=== PATIENT | female | born 1950 | race Caucasian/White ===

== ENCOUNTER 2018-04-27 10:26 | Day surgery (SDC) | payer MEDICARE, OTHER ==
[~2018-04-27] VITALS: Ht 162.6 cm; Wt 58.1 kg
[~2018-04-27 10:26] MED LIST: ASPIRIN325 MG PO; DAILY VALUE1 EACH PO; GLUCOPHAGE1000 MG PO; LIPITOR20 MG PO; NAPROXEN SODIU550 M1 PO; OMEPRAZOLE20 MG PO; PREMARIN1.25 MG PO; SYNTHROID75 MCG PO
--- NOTE | 2018-04-27 14:28 | NUR ---
04/27/18 1428 Maisha Greco 1418 PATIENT ARRIVES TO PACU, SLEEPING, RESPONDS APPROPRIATELY TO VERBAL STIMULI. RESP EVEN AND UNLABORED, NC AT 2 LITERS ON ARRIVAL, TURNED OFF. ROOM AIR SATS 96%. 1428 SPOUSE AT BEDSIDE. PATIENT SITTING UP TALKING WITH SPOUSE. DR FISHMAN AT BEDSIDE TO TALK WITH PATIENT AND SPOUSE. PATIENT PASSING GAS.
--- NOTE | 2018-04-28 10:03 | OR ---
[facility] [address], [place] [address] Signed DATE OF OPERATION: 04/27/2018 SURGEON: Dionicio Fishman MD PREOPERATIVE DIAGNOSES: 1. Iron deficiency anemia. 2. History of dysplastic polyp of colon, in 2003, normal colonoscopy in 2012. POSTOPERATIVE DIAGNOSIS: Sigmoid diverticulosis. No evidence of polyps, colitis, or cancer. PROCEDURE: Total colonoscopy to cecum. ANESTHESIA: Intravenous sedation, fentanyl 100 mcg, Versed 5 mg. INDICATION: This 68-year-old white woman is a patient Dr. Alcazar and has been identified as having iron deficiency anemia with hematocrit of about 32. She underwent colonoscopy by me in 2003, which time she had a dysplastic polyp. Followup colonoscopy in 2012 was negative. She has no family history of colon cancer. She is having no upper abdominal pain. No blood per rectum, diarrhea, or constipation. She is admitted to undergo colonoscopy to assess for possible neoplasm to account for anemia. She understands the risks of bleeding, infection, and perforation. FINDINGS: The prep was good. Complete colonoscopy was undertaken of the cecum without question. There were several small diverticula of the sigmoid and left colon, but no signs of polyps, diverticular colitis, or cancer. DESCRIPTION OF PROCEDURE: The patient was brought to the endoscopy suite and placed in lateral decubitus position, given intravenous sedation to the point of slurred speech and nystagmus. Digital rectal examination was normal. The Olympus video colonoscope was passed in the rectum and manipulated throughout the colon. Passage to the sigmoid was slightly prolonged on the basis of angulation deformity, possibly related to diverticulosis. Diverticula were small. The scope was ultimately advanced beyond this to the cecum itself. The ileocecal valve and Electronically Signed By: DIONICIO FISHMAN MD 04/28/18 1003 PATIENT NAME: DEE OAKES OPERATIVE REPORT DATE OF : 46 REPORT #: [id number] PHYSICIAN: DIONICIO FISHMAN MD PCP: GENIE ALCAZAR MD REPORT IS CONFIDENTIAL AND NOT TO BE RELEASED WITHOUT AUTHORIZATION [facility] [address], [place] [address] Signed appendiceal orifice were well identified and found to be normal. The scope was withdrawn from that point and examination throughout showed no sign of abnormality other than the diverticula of the sigmoid. Retroflexed view of the rectum was normal. Scope was removed. The patient was taken to the recovery room in good condition. CONCLUDING DIAGNOSIS: Minimal diverticular changes. No sign of cancer or polyps. PLAN: We will repeat CBC. If she is still anemic, consideration might be made for upper endoscopy or other intervention to assess for cause of anemia. MD EVE Grande/FRIDA /[id number] cc: Genie Alcazar MD Copies: GENIE ALCAZAR MD ~ Electronically Signed By: DIONICIO FISHMAN MD 04/28/18 1003 PATIENT NAME: DEE OAKES OPERATIVE REPORT DATE OF : 46 REPORT #: [id number] PHYSICIAN: DIONICIO FISHMAN MD PCP: GENIE ALCAZAR MD REPORT IS CONFIDENTIAL AND NOT TO BE RELEASED WITHOUT AUTHORIZATION
== END 2018-04-27 14:55 | disposition home or self-care (01) ==
LOC: DS 10:26 → OPS 10:26 → DS 12:00 → OPS 14:55
PROVIDERS: Surgery
PROC: 0DJD8ZZ Inspection of Lower Intestinal Tract, Via Natural or Artificial Opening Endoscopic (ICD-10-PCS; principal; 2018-04-27 12:00)
DX: K57.30 Diverticulosis of large intestine without perforation or abscess without bleeding (principal); D50.9 Iron deficiency anemia, unspecified; E11.9 Type 2 diabetes mellitus without complications; N20.0 Calculus of kidney; Z98.890 Other specified postprocedural states; Z86.010 Personal history of colon polyps
CPT/HCPCS: 85025; 99153; G0500; J2250; J3010; J7120

== ENCOUNTER 2025-02-01 11:57 | Emergency (ER) | payer MEDICARE, OTHER ==
[~2025-02-01] VITALS: Ht 162.6 cm; Wt 52.5 kg
[~2025-02-01 11:57] MED LIST changes: +CO Q-10 100 MG1 EACH PO
[2025-02-01] MEDS ORDERED: LEVOTHYROXINE75 MCG PO (12:17)
[2025-02-01 12:44] LABS: ALBUMIN/GLOBULIN RATIO 0.77 (1.1-2.4); ALCOHOL, MEDICAL <3 ng/dL (<3); ALKALINE PHOSPHATASE 128 U/L (46-116); ALT (SGPT) 28 U/L (14-59); ANION GAP 12.8 (7-21); AST (SGOT) 30 U/L (15-37); BILIRUBIN, TOTAL 0.6 mg/dL (0.2-1.0); BUN/CREATININE RATIO 19.75 (6.0-28.6); CALCIUM 9.7 mg/dL (8.5-10.1); CARBON DIOXIDE 24 mmol/L (21-32); CHLORIDE 100 mmol/L (98-107); CREATININE, SERUM 0.81 mg/dL (0.55-1.02); GLOMERULAR FILTRATION RATE,EST 75 mL/min (>60); POTASSIUM 3.8 mmol/L (3.5-5.1); PROTEIN, TOTAL 6.9 g/dL (6.4-8.2); UREA NITROGEN 16 mg/dL (7-18)
[2025-02-01 12:55] LABS: BASOPHILS 0.1 % (0-2); HEMATOCRIT 32.3 % (35.0-50.0); HEMOGLOBIN 11.2 g/dL (12.0-18.0); LYMPHOCYTES 7.1 % (24-44); MCH 29.3 (27-36); MCHC 34.6 g/dl (30-36); MCV 84.8 fl (81-99); MONOCYTES 4.6 % (0-12); NEUTROPHILS 88.2 % (39-80); PLATELET COUNT 107 K/uL (140-440); RBC 3.81 M/ul (4.3-5.7); RDW 13.8 (10.5-15.0)
[2025-02-01] MEDS ORDERED: SODIUM CHLORIDE 0.9% 1,000 ML IV PRN (13:30)
[2025-02-01 14:15] LABS: BILIRUBIN, URINE NEGATIVE (negative); BLOOD/HGB, URINE NEGATIVE (Negative); KETONE, URINE >=80 (Negative); LEUK ESTERASE, URINE NEGATIVE (negative); NITRITE, URINE NEGATIVE (negative)
[2025-02-01] MEDS ORDERED: ACETAMINOPHEN 325 MG TAB PO ONE (14:30)
[2025-02-01 14:58] LABS: AMPHETAMINES, URINE NEGATIVE (NEGATIVE); BARBITURATES, URINE NEGATIVE (NEGATIVE); BENZODIAZEPINE, URINE NEGATIVE (NEGATIVE); BUPRENORPHINE, URINE NEGATIVE (NEGATIVE); CANNABINOID, URINE NEGATIVE (NEGATIVE); COCAINE, URINE NEGATIVE (NEGATIVE); ECSTASY, URINE NEGATIVE (NEGATIVE); FENTANYL, URINE NEGATIVE (NEGATIVE); METHADONE, URINE NEGATIVE (NEGATIVE); OPIATES, URINE NEGATIVE (NEGATIVE); OXYCODONE, URINE NEGATIVE (NEGATIVE); PHENCYCLIDINE, URINE NEGATIVE (NEGATIVE)
[2025-02-01] MEDS ORDERED: OLANZAPINE ODT5 MG PO (16:49)
[2025-02-01] MEDS ORDERED: AMOX TR-K CLV1 EAC1 PO (16:49)
[2025-02-01 17:02] VITALS: BP 144/86
--- NOTE | 2025-02-02 07:34 | EKG ---
[facility] [address] [facility] [place], [place] [address] Signed Normal sinus rhythm Normal ECG No previous ECGs available Confirmed by Sadaf Freeman MD ([id number]) on 02/02/2025 7:34:33 AM Electronically Signed By: SADAF FREEMAN MD 02/02/25 0734 PATIENT NAME: DEE OAKES Electrocardiogram DATE OF : 46 PHYSICIAN: SADAF FREEMAN MD REPORT #: [id number] REPORT IS CONFIDENTIAL AND NOT TO BE RELEASED WITHOUT AUTHORIZATION
== END 2025-02-01 17:02 | disposition home or self-care (01) ==
LOC: ED 11:57
PROVIDERS: Emergency Medicine
DX: R41.89 Other symptoms and signs involving cognitive functions and awareness (principal); E11.9 Type 2 diabetes mellitus without complications; E03.9 Hypothyroidism, unspecified; Z79.899 Other long term (current) drug therapy
CPT/HCPCS: 36415; 51701; 70450; 71045; 72125; 72170; 80053; 80307; 81003; 84484; 85025; 93005; 93010; 99285-25; A9270; G0480; J7030

== ENCOUNTER 2025-02-03 11:07 | Inpatient (IN) | payer MEDICARE, OTHER ==
[~2025-02-03] VITALS: Ht 162.6 cm; Wt 49.0 kg
[~2025-02-03 11:07] MED LIST changes: +AMOX TR-K CLV1 EAC1 PO; +LEVOTHYROXINE75 MCG PO; +OLANZAPINE ODT5 MG PO; +SEVOFLURANE 250 ML BTL INH ONE
--- OUTSIDE RECORDS SUMMARY | 2025-02-03 11:08 | XMS ---
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 Cat VISIT COUNT (12 MO.) 2 [facility] TOTAL 2 NOTE: Visits indicate total known visits. ED/UCC VISIT TRACKING (12 MO.) 02/03/2025 11:07 [facility] TYPE: Emergency COMPLAINT: - ALTERED LOC 02/01/2025 11:58 [facility] [place] TYPE: Emergency COMPLAINT: - ALTERED MENTAL STATUS INPATIENT VISIT TRACKING (12 MO.) No inpatient visits to display in this time frame [email or web address]
[2025-02-03 11:26] LABS: BASOPHILS 0.2 % (0-2); HEMATOCRIT 36.6 % (35.0-50.0); HEMOGLOBIN 12.5 g/dL (12.0-18.0); LYMPHOCYTES 9.2 % (24-44); MCH 28.7 (27-36); MCHC 34.2 g/dl (30-36); MCV 84.1 fl (81-99); MONOCYTES 7.8 % (0-12); NEUTROPHILS 82.8 % (39-80); PLATELET COUNT 164 K/uL (140-440); RBC 4.35 M/ul (4.3-5.7); RDW 13.6 (10.5-15.0)
[2025-02-03 11:45] LABS: ALBUMIN 2.9 g/dL (3.4-5.0); ALBUMIN/GLOBULIN RATIO 0.66 (1.1-2.4); ANION GAP 13.2 (7-21); BILIRUBIN, TOTAL 0.8 mg/dL (0.2-1.0); BUN/CREATININE RATIO 19.1 (6.0-28.6); CREATININE, SERUM 0.89 mg/dL (0.55-1.02); POTASSIUM 3.2 mmol/L (3.5-5.1); PROTEIN, TOTAL 7.3 g/dL (6.4-8.2)
[2025-02-03] MEDS ORDERED: SODIUM CHLORIDE 0.9% 500 ML IV PRN (12:00)
[2025-02-03 12:11] LABS: BILIRUBIN, URINE NEGATIVE (negative); BLOOD/HGB, URINE NEGATIVE (Negative); KETONE, URINE SMALL (Negative); LEUK ESTERASE, URINE NEGATIVE (negative); NITRITE, URINE NEGATIVE (negative); PH, URINE 6.5 (5-7)
[2025-02-03 12:21] LABS: BACTERIA, URINE NONE SEEN /hpf (negative); CASTS, URINE NONE SEEN \\lpf; COLLECTION TYPE, URINE CLEAN CATCH; CRYSTALS, URINE CALCIUM OXALATE 2+ (0-1+); EPITHELIAL CELLS, URINE SQUAMOUS 1+ /lpf (0-1+); RED BLOOD CELLS, URINE 0-1 /hpf (0-5); REFLEX CULTURE, URINE No (No); WHITE BLOOD CELLS, URINE 0-1 /HPF (0-5)
[2025-02-03] MEDS ORDERED: PANTOPRAZOLE SODIUM 40 MG/10 ML VIAL IV ONE (13:15)
[2025-02-03] MEDS ORDERED: LORazepam 2 MG/ML VIAL IV ONE (14:45)
[2025-02-03] MEDS ORDERED: CEFTRIAXONE SODIUM 1 GM in SODIUM CHLORIDE 0.9% 100 ML IV SCH (17:00)
[2025-02-03 17:45] VITALS: BP 181/80
[2025-02-03] MEDS ORDERED: ondansetron HCL 4 MG/2 ML VIAL IV PRN (17:45)
[2025-02-03] MEDS ORDERED: ACETAMINOPHEN 325 MG TAB PO PRN (17:45)
[2025-02-03 17:59] LABS: AMPHETAMINES, URINE NEGATIVE (NEGATIVE); BARBITURATES, URINE NEGATIVE (NEGATIVE); BENZODIAZEPINE, URINE NEGATIVE (NEGATIVE); BUPRENORPHINE, URINE NEGATIVE (NEGATIVE); CANNABINOID, URINE NEGATIVE (NEGATIVE); COCAINE, URINE NEGATIVE (NEGATIVE); ECSTASY, URINE NEGATIVE (NEGATIVE); FENTANYL, URINE NEGATIVE (NEGATIVE); METHADONE, URINE NEGATIVE (NEGATIVE); OPIATES, URINE NEGATIVE (NEGATIVE); OXYCODONE, URINE NEGATIVE (NEGATIVE); PHENCYCLIDINE, URINE NEGATIVE (NEGATIVE)
[2025-02-03 19:54] VITALS: BP 168/67; BP 468/67
[2025-02-03 19:57] VITALS: BP 168/67
[2025-02-03] MEDS ORDERED: SODIUM CHLORIDE 0.9% 1,000 ML IV SCH (20:15)
[2025-02-04] VITALS (10 sets, daily range): BP systolic 143–171; BP diastolic 67–86
[2025-02-04 05:40] LABS: BASOPHILS 0.2 % (0-2); HEMATOCRIT 33.6 % (35.0-50.0); HEMOGLOBIN 11.7 g/dL (12.0-18.0); LYMPHOCYTES 14.5 % (24-44); MCH 28.9 (27-36); MCHC 34.7 g/dl (30-36); MCV 83.3 fl (81-99); MONOCYTES 9.2 % (0-12); NEUTROPHILS 76.1 % (39-80); PLATELET COUNT 149 K/uL (140-440); RBC 4.04 M/ul (4.3-5.7); RDW 13.9 (10.5-15.0)
[2025-02-04 05:47] LABS: ANION GAP 7.7 (7-21); BUN/CREATININE RATIO 20.27 (6.0-28.6); CALCIUM 9.6 mg/dL (8.5-10.1); CREATININE, SERUM 0.74 mg/dL (0.55-1.02); MAGNESIUM 1.8 mg/dL (1.8-2.4); POTASSIUM 2.7 mmol/L (3.5-5.1)
[2025-02-04] MEDS ORDERED: PIPERACILLIN/TAZOBACTAM 4.5 GM in SODIUM CHLORIDE 0.9% 100 ML IV SCH (07:45)
[2025-02-04] MEDS ORDERED: POTASSIUM CHLORIDE 40 MEQ in DEXTROSE 5% 250 ML IV ONE ×3 (07:45→18:30)
[2025-02-04 07:50] LABS: ALBUMIN 2.6 g/dL (3.4-5.0); ALBUMIN/GLOBULIN RATIO 0.67 (1.1-2.4); BILIRUBIN, DIRECT 0.2 mg/dL (0.0-0.2); BILIRUBIN, INDIRECT 0.4 (0.1-0.7); BILIRUBIN, TOTAL 0.6 mg/dL (0.2-1.0); PROTEIN, TOTAL 6.5 g/dL (6.4-8.2)
[2025-02-04] MEDS ORDERED: ENOXAPARIN SODIUM 40 MG/0.4 ML SYR SUB-Q SCH (09:00)
[2025-02-04] MEDS ORDERED: PHARMACY RENAL DOSE ADJUSTMENT 1 DOSE MISC PO SCH (12:00)
[2025-02-04 12:21] LABS: INR 1.27 (0.80-1.30); PROTIME 15.4 Sec (11.2-14.2)
[2025-02-04] MEDS ORDERED: IBLOOD GLUCOSE TEST STRIP 1 EA TEST VI SCH (14:00)
[2025-02-04] MEDS ORDERED: metroNIDAZOLE/SODIUM CHLORIDE 500 MG/100 ML PIGGYBACK IV SCH (14:00)
[2025-02-04] MEDS ORDERED: ACETAMINOPHEN 1,000 MG/100 ML VIAL IV PRN (14:30)
[2025-02-04] MEDS ORDERED: INSULIN LISPRO 100 UNIT/ML ML SUB-Q ONE ×2 (14:45→21:30)
[2025-02-04 18:12] LABS: ANION GAP 6.6 (7-21); BUN/CREATININE RATIO 17.64 (6.0-28.6); CALCIUM 9.5 mg/dL (8.5-10.1); CREATININE, SERUM 0.85 mg/dL (0.55-1.02); POTASSIUM 3.6 mmol/L (3.5-5.1)
[2025-02-05] VITALS (11 sets, daily range): BP systolic 149–192; BP diastolic 64–87
[2025-02-05 06:14] LABS: BASOPHILS 0.2 % (0.1-1.2); EOSINOPHILS 0.2 % (0.7-5.8); HEMATOCRIT 36.3 % (34.1-44.9); HEMOGLOBIN 12.1 g/dL (11.2-15.7); LYMPHOCYTES 12.1 % (19.3-51.7); MCH 28.5 PG (25.6-32.2); MCHC 33.3 g/dL (32.2-35.5); MCV 85.6 fL (79.4-94.8); MONOCYTES 5.8 % (4.7-12.5); NEUTROPHILS 80.9 % (34.0-71.1); PLATELET COUNT 145 K/uL (182-369); RBC 4.24 M/uL (3.93-5.22)
[2025-02-05 06:24] LABS: ANION GAP 11.6 (7-21); BUN/CREATININE RATIO 19.44 (6.0-28.6); CALCIUM 9.7 mg/dL (8.5-10.1); CREATININE, SERUM 0.72 mg/dL (0.55-1.02); INR 1.27 (0.80-1.30); MAGNESIUM 1.8 mg/dL (1.8-2.4); POTASSIUM 3.6 mmol/L (3.5-5.1); PROTIME 15.1 Sec (11.2-14.2)
--- NOTE | 2025-02-05 07:52 | EKG ---
[facility] [address] [facility] [place] [address] Signed Normal sinus rhythm Nonspecific ST abnormality Abnormal ECG When compared with ECG of 01-FEB-2025 12:48, No significant change was found Confirmed by Sadaf Freeman MD ([id number]) on 02/05/2025 7:51:52 AM Electronically Signed By: SADAF FREEMAN MD 02/05/25 0752 PATIENT NAME: DEE OAKES Electrocardiogram DATE OF : 46 PHYSICIAN: SADAF FREEMAN MD REPORT #: [id number] REPORT IS CONFIDENTIAL AND NOT TO BE RELEASED WITHOUT AUTHORIZATION
[2025-02-05 08:39] LABS: TRIIODOTHYRONINE,FREE FREE T3 1.2 pg/mL (2.5-4.3)
[2025-02-05] MEDS ORDERED: MORPHINE SULFATE 4 MG/ML VIAL IV PRN (10:00)
[2025-02-05 12:35] LABS: THYROXINE FREE 1.2 ng/dL (0.9-1.7)
[2025-02-05] MEDS ORDERED: LIDOCAINE HCL 2% 5 ML SDV ONE (12:40)
[2025-02-05] MEDS ORDERED: SUGAMMADEX SODIUM 200 MG/2 ML ML ONE (12:40)
[2025-02-05] MEDS ORDERED: ROCURONIUM BROMIDE 50 MG/5 ML SYR ONE (12:40)
[2025-02-05] MEDS ORDERED: fentaNYL citrate 100 MCG/2 ML VIAL ONE (12:40)
[2025-02-05] MEDS ORDERED: LIDOCAINE HCL 2% 20 MG/ML VIAL INJ ONE (12:40)
[2025-02-05] MEDS ORDERED: ondansetron HCL 4 MG/2 ML VIAL ONE (12:40)
[2025-02-05] MEDS ORDERED: SUCCINYLCHOLINE IN 0.9% NACL 200 MG/10 ML SYRINGE ONE (12:40)
[2025-02-05] MEDS ORDERED: ACETAMINOPHEN 1,000 MG/100 ML VIAL ONE (12:40)
[2025-02-05] MEDS ORDERED: propofoL 200 MG/20 ML VIAL ONE (12:40)
[2025-02-05] MEDS ORDERED: LACTATED RINGER'S 1,000 ML IV ONE (14:38)
[2025-02-05] MEDS ORDERED: fentaNYL citrate 50 MCG/ML SDV IV PRN (15:00)
[2025-02-05] MEDS ORDERED: NALOXONE HCL 0.4 MG SYR IV PRN (15:00)
[2025-02-05] MEDS ORDERED: ondansetron HCL 4 MG/2 ML VIAL IV PRN (15:00)
[2025-02-05] MEDS ORDERED: IBLOOD GLUCOSE TEST STRIP 1 EA TEST VI PRN (15:00)
[2025-02-05] MEDS ORDERED: ARTIFICIAL TEARS 15 ML BTL OS SCH (15:00)
[2025-02-05] MEDS ORDERED: OXYCODONE HCL 5 MG TAB PO PRN (16:00)
[2025-02-05] MEDS ORDERED: HYDROmorphone HCL 1 MG/ML SYR IV PRN (16:00)
[2025-02-06] VITALS (11 sets, daily range): BP systolic 136–177; BP diastolic 69–82
[2025-02-06 05:48] LABS: BASOPHILS 0.1 % (0.1-1.2); EOSINOPHILS 0 % (0.7-5.8); HEMATOCRIT 37.5 % (34.1-44.9); HEMOGLOBIN 12.5 g/dL (11.2-15.7); LYMPHOCYTES 14.7 % (19.3-51.7); MCH 28.4 PG (25.6-32.2); MCHC 33.3 g/dL (32.2-35.5); MCV 85.2 fL (79.4-94.8); MONOCYTES 5.1 % (4.7-12.5); NEUTROPHILS 79.5 % (34.0-71.1); PLATELET COUNT 148 K/uL (182-369)
[2025-02-06 05:58] LABS: ANION GAP 10.5 (7-21); BUN/CREATININE RATIO 29.23 (6.0-28.6); CALCIUM 9.7 mg/dL (8.5-10.1); CREATININE, SERUM 0.65 mg/dL (0.55-1.02); MAGNESIUM 1.7 mg/dL (1.8-2.4); POTASSIUM 3.5 mmol/L (3.5-5.1)
--- NOTE | 2025-02-06 07:45 | EKG ---
[facility] [address] [facility] [place] [address] Signed Normal sinus rhythm Possible Left atrial enlargement Nonspecific ST abnormality Abnormal ECG When compared with ECG of 03-FEB-2025 11:30, (Unconfirmed) No significant change was found Confirmed by Sadaf Freeman MD ([id number]) on 02/06/2025 7:45:09 AM Electronically Signed By: SADAF FREEMAN MD 02/06/25 0745 PATIENT NAME: DEE OAKES Electrocardiogram DATE OF : 46 PHYSICIAN: SADAF FREEMAN MD REPORT #: [id number] REPORT IS CONFIDENTIAL AND NOT TO BE RELEASED WITHOUT AUTHORIZATION
[2025-02-06] MEDS ORDERED: AMOXICILLIN/CLAVULANATE K 875 MG TAB PO SCH (08:00)
[2025-02-06] MEDS ORDERED: MAGNESIUM SULFATE 2 GM/50 ML BAG IV SCH (09:00)
[2025-02-06] MEDS ORDERED: POTASSIUM CHLORIDE 20 MEQ/15 ML CUP PO ONE (09:00)
[2025-02-06] MEDS ORDERED: IBLOOD GLUCOSE TEST STRIP 1 EA TEST VI SCH ×2 (11:00→21:00)
[2025-02-06] MEDS ORDERED: predniSONE 20 MG TAB PO SCH (12:09)
[2025-02-06] MEDS ORDERED: FUROSEMIDE 20 MG TAB PO SCH (12:15)
[2025-02-06] MEDS ORDERED: SPIRONOLACTONE 25 MG TAB PO SCH (12:15)
[2025-02-06] MEDS ORDERED: VALACYCLOVIR HCL 500 MG TAB PO SCH (15:00)
[2025-02-06] MEDS ORDERED: DEXTROSE 5% 1,000 ML IV PRN (17:15)
[2025-02-06] MEDS ORDERED: IBLOOD GLUCOSE TEST STRIP 1 EA TEST XX PRN (17:15)
[2025-02-06] MEDS ORDERED: DEXTROSE 50% 50 ML SYR IV PRN ×2 (17:15)
[2025-02-06] MEDS ORDERED: GLUCAGON,HUMAN RECOMBINANT 1 MG/ML VIAL SUB-Q PRN (17:15)
[2025-02-06] MEDS ORDERED: ARTIFICIAL TEARS OS SCH (21:00)
[2025-02-06] MEDS ORDERED: INSULIN LISPRO 100 UNIT/ML ML SUB-Q SCH (21:00)
[2025-02-07] VITALS (7 sets, daily range): BP systolic 132–145; BP diastolic 77–98
[2025-02-07 05:29] LABS: BASOPHILS 0.1 % (0.1-1.2); EOSINOPHILS 0.1 % (0.7-5.8); HEMATOCRIT 34.6 % (34.1-44.9); HEMOGLOBIN 11.3 g/dL (11.2-15.7); LYMPHOCYTES 17.7 % (19.3-51.7); MCH 27.9 PG (25.6-32.2); MCHC 32.7 g/dL (32.2-35.5); MCV 85.4 fL (79.4-94.8); MONOCYTES 6.5 % (4.7-12.5); PLATELET COUNT 142 K/uL (182-369); RBC 4.05 M/uL (3.93-5.22)
[2025-02-07 05:42] LABS: ANION GAP 8.5 (7-21); BUN/CREATININE RATIO 38.96 (6.0-28.6); CALCIUM 9.5 mg/dL (8.5-10.1); CREATININE, SERUM 0.77 mg/dL (0.55-1.02); MAGNESIUM 2.2 mg/dL (1.8-2.4); POTASSIUM 3.5 mmol/L (3.5-5.1)
[2025-02-07] MEDS ORDERED: SPIRONOLACTONE25 MG PO (12:04)
[2025-02-07] MEDS ORDERED: FUROSEMIDE20 MG PO (12:04)
[2025-02-07] MEDS ORDERED: VALACYCLOVIR500 MG PO (12:04)
[2025-02-07] MEDS ORDERED: ARTIFICIAL TEAR15 M3 OS (12:04)
[2025-02-07] MEDS ORDERED: PREDNISONE20 MG PO (12:05)
[2025-02-07] MEDS ORDERED: AMOX TR-K CLV1 EAC1 PO (12:06)
== END 2025-02-07 15:05 | disposition home or self-care (01) | DRG 418 ==
LOC: ED 11:07 → MS 16:26
PROVIDERS: Emergency Medicine; Surgery; ADMIT Student in an Organized Health Care Education/Training Program; ATTEND Student in an Organized Health Care Education/Training Program
PROC: 0FT44ZZ Resection of Gallbladder, Percutaneous Endoscopic Approach (ICD-10-PCS; principal; 2025-02-05 13:00)
DX: K81.0 Acute cholecystitis (principal); E87.1 Hypo-osmolality and hyponatremia; R64 Cachexia; Z68.1 Body mass index [BMI] 19.9 or less, adult; F05 Delirium due to known physiological condition; R44.3 Hallucinations, unspecified; R18.8 Other ascites; F03.90 Unspecified dementia, unspecified severity, without behavioral disturbance, psychotic disturbance, mood disturbance, and anxiety; E11.9 Type 2 diabetes mellitus without complications; E03.9 Hypothyroidism, unspecified; Z60.2 Problems related to living alone; I10 Essential (primary) hypertension; H66.92 Otitis media, unspecified, left ear; K75.81 Nonalcoholic steatohepatitis (NASH); G51.0 Bell's palsy; K74.60 Unspecified cirrhosis of liver; E87.6 Hypokalemia; Z90.710 Acquired absence of both cervix and uterus; Z79.899 Other long term (current) drug therapy; Z86.73 Personal history of transient ischemic attack (TIA), and cerebral infarction without residual deficits; Z79.2 Long term (current) use of antibiotics; Z79.890 Hormone replacement therapy; Z99.3 Dependence on wheelchair
CPT/HCPCS: 00790; 36415; 70450; 70551; 71045; 71260; 74177; 76705; 80048; 80053; 80076; 80307; 81001; 82140; 83735; 84439; 84443; 84481; 84484; 85025; 85610; 93005; 93010; 94762; 97163; 97167; A9270; J0131; J0330; J0696; J1650; J1815; J2003; J2270; J2405; J2543; J2704; J3010; J3475; J3480; J3490; J7030; J7040; J7060; J7121; J7512; Q9967